=== PATIENT | female | born 1990 | race African-American/Black ===

== ENCOUNTER 2018-10-10 13:21 | Emergency (ER) | payer SELFPAY ==
[2018-10-10] MEDS ORDERED: LIDOCAINE 1% INJ-PF (10 MG/ML) 30 ML SDV NEB ONE (16:17)
--- NOTE | 2018-10-10 16:34 | ER Document Report ---
HPI - HPI Time Seen by Provider: 10/10/18 15:39 Pain Level: 3 Notes: Patient is an otherwise healthy 28-year-old female who presents with chief complaint of sore throat and chest congestion that started 2 days ago. Patient reports productive cough, denies any fevers. Denies any nasal congestion. Denies any nausea, vomiting or diarrhea. - CONSTITUTIONAL Constitutional: DENIES: Fever, Chills - EENT EENT: REPORTS: Sore Throat - redness/pain. DENIES: Ear Pain, Eye problems - NEURO Neurology: DENIES: Headache, Weakness, Vision blurred - CARDIOVASCULAR Cardiovascular: DENIES: Chest pain - RESPIRATORY Respiratory: DENIES: Trouble Breathing, Coughing - GASTROINTESTINAL Gastrointestinal: DENIES: Abdominal Pain, Black / Bloody Stools - URINARY Urinary: DENIES: Dysuria, Urgency, Frequency - REPRODUCTIVE Reproductive: DENIES: :, Postmenopausal, Abnormal bleeding / discharge Past Medical History - General Information source: Patient - Social History Smoking Status: Never Smoker Frequency of alcohol use: None Drug Abuse: None Family History: Reviewed & Not Pertinent Patient has suicidal ideation: No Patient has homicidal ideation: No - Medical History Medical History: Negative Renal/ Medical History: Denies: Hx Peritoneal Dialysis Surgical Hx: Negative - Immunizations Hx Diphtheria, Pertussis, Tetanus Vaccination: Yes Vertical Provider Document - CONSTITUTIONAL Notes: PHYSICAL EXAMINATION: GENERAL: Well-appearing, well-nourished and in no acute distress. HEAD: Atraumatic, normocephalic. EYES: Pupils equal round extraocular movements intact, conjunctiva are normal. ENT: Nares patent with clear rhinorrhea, mild tonsillar swelling with erythema, no exudates, no evidence of peritonsillar abscess. NECK: Normal range of motion, mild cervical lymphadenopathy. LUNGS: No respiratory distress, lung sounds clear to auscultation bilaterally. Musculoskeletal: Normal range of motion. NEUROLOGICAL: Normal speech, normal gait. PSYCH: Normal mood, normal affect. SKIN: Warm, Dry, normal turgor, no rashes or lesions noted. - INFECTION CONTROL TRAVEL OUTSIDE OF THE [place] IN LAST 30 DAYS: No Course - Re-evaluation Re-evalutation: Rapid strep is negative. Likely viral sore throat and upper respiratory illness. Patient discharged home in stable condition with home care instructions. - Vital Signs Vital signs: Temp Pulse Resp BP Pulse Ox 98.3 F 72 16 123/72 100 10/10/18 14:24 10/10/18 14:24 10/10/18 14:24 10/10/18 14:24 10/10/18 14:24 Discharge - Discharge Clinical Impression: Sore throat, Viral upper respiratory illness Condition: Stable Disposition: HOME, SELF-CARE Additional Instructions: Your symptoms are most likely due to a viral infection it should resolve over the next 7-14 days. You should take ypqc-pbi-xnfxhak guanfacine per bottle instructions to help thin the mucus. For nasal congestion: I would recommend that you get ttvo-bue-jrupltg oxymetazoline also known is afrin. Use only per bottle instructions and be sure to never use this for more than 3 days if you can develop severe rebound congestion. You may also use tylenol or ibuprofen as needed for aches and throat discomfort. Please be sure to drink plenty of fluids and get rest. Return to the emergency department he began having difficulty breathing, chest pain, persistent vomiting, or any other symptoms that are concerning to you. For the sore throat symptoms you may purchase an qdeq-oan-noquvcb sore throat medicine such as Chloraseptic spray or you can drink warm liquids such as hot tea with lemon. Prescriptions: Benzonatate [Tessalon Perles 100 mg Capsule] 100 mg PO Q8HP PRN #40 capsule PRN Reason: Prednisone [Deltasone 20 mg Tablet] 3 tab PO DAILY 5 Days #15 tablet Forms: Return to Work
[2018-10-10 17:30] VITALS: BP 125/90
== END 2018-10-10 17:44 | disposition home or self-care (01) ==
LOC: ER 13:21
DX: J02.9 Acute pharyngitis, unspecified (principal); J06.9 Acute upper respiratory infection, unspecified; B97.89 Other viral agents as the cause of diseases classified elsewhere; R09.89 Other specified symptoms and signs involving the circulatory and respiratory systems; R05 Cough
CPT/HCPCS: 94640; 99283; 87070; 87880; J3490

== ENCOUNTER 2019-03-16 11:04 | Emergency (ER) | payer SELFPAY ==
--- NOTE | 2019-03-16 11:18 | ER Document Report ---
ED Medical Screen (RME) - General Chief Complaint: Vag Bleeding, +preg <12wks Stated Complaint: VAGINAL BLEEDING Time Seen by Provider: 03/16/19 11:14 Mode of Arrival: Ambulatory Information source: Patient Notes: 28-year-old female presented to ED for complaint of positive home test on March 06 and vaginal bleeding that started today. She states she has felt very uncomfortable today. She is 5 para 2 with 2 miscarriages. She states she smokes maybe 1 cigarette a day does not drink and does smoke and she works at a [employer]. She is alert oriented respirations regular and unlabored speaking in full sentences walks with a even steady gait. Her blood type is O+. TRAVEL OUTSIDE OF THE [place] IN LAST 30 DAYS: No - Related Data Allergies/Adverse Reactions: No Known Allergies Allergy (Verified 10/10/18 13:26) Past Medical History Renal/ Medical History: Denies: Hx Peritoneal Dialysis - Immunizations Hx Diphtheria, Pertussis, Tetanus Vaccination: Yes Physical Exam - Vital signs Vitals: Temp Pulse Resp BP Pulse Ox 99.0 F 77 14 125/76 100 03/16/19 11:10 03/16/19 11:10 03/16/19 11:10 03/16/19 11:10 03/16/19 11:10 Course - Vital Signs Vital signs: Temp Pulse Resp BP Pulse Ox 99.0 F 77 14 125/76 100 03/16/19 11:10 03/16/19 11:10 03/16/19 11:10 03/16/19 11:10 03/16/19 11:10
[2019-03-16 11:38] LABS: ABSOLUTE BASOPHILS # (AUTO) 0.1 10^3/uL (0.0-0.2); ABSOLUTE LYMPHOCYTES (AUTO) 2.2 10^3/uL (0.5-4.7); ABSOLUTE MONOCYTES (AUTO) 0.5 10^3/uL (0.1-1.4); ABSOLUTE NEUT (AUTO) 2.9 10^3/uL (1.7-8.2); EOSINOPHILS % (AUTO) 0.6 % (0-6); HEMOGLOBIN 11.8 g/dL (12.0-15.5); LYMPHOCYTES % (AUTO) 39.3 % (13-45); MEAN CORPUSCULAR HEMOGLOBIN 26.1 pg (27.0-33.4); MEAN CORPUSCULAR HGB CONC 32.6 g/dL (32.0-36.0); MEAN CORPUSCULAR VOLUME 80 fl (80-97); MONOCYTES % (AUTO) 8.8 % (3-13); PLATELET COUNT 237 10^3/uL (150-450); SEGMENTED NEUTROPHILS % (AUTO) 50.3 % (42-78); TOTAL CELLS COUNTED % (AUTO) 100 %; WHITE BLOOD COUNT 5.7 10^3/uL (4.0-10.5)
[2019-03-16 11:42] LABS: APPEARANCE,URINE SLIGHTLY-CLOUDY; BILIRUBIN,URINE NEGATIVE (NEGATIVE); COLOR,URINE YELLOW; GLUCOSE, URINE NEGATIVE (NEGATIVE); KETONES,URINE TRACE mg/dL (NEGATIVE); LEUKOCYTE ESTERASE,URINE NEGATIVE (NEGATIVE); NITRITE,URINE NEGATIVE (NEGATIVE); PROTEIN,URINE 30 mg/dL (NEGATIVE); URINE SPECIFIC GRAVITY 1.028
[2019-03-16 11:56] LABS: ALBUMIN 4.6 g/dL (3.5-5.0); ALKALINE PHOSPHATASE 75 U/L (38-126); ANION GAP 9 (5-19); ASPARTATE AMINO TRANSFERASE 21 U/L (14-36); BILIRUBIN,DIRECT 0.2 mg/dL (0.0-0.4); BILIRUBIN,TOTAL 0.4 mg/dL (0.2-1.3); BLOOD UREA NITROGEN 7 mg/dL (7-20); CALCIUM 9.2 mg/dL (8.4-10.2); CARBON DIOXIDE 27 mmol/L (22-30); CHLORIDE 104 mmol/L (98-107); GLUCOSE 82 mg/dL (75-110); POTASSIUM 3.6 mmol/L (3.6-5.0); TOTAL PROTEIN 7.9 g/dL (6.3-8.2)
--- NOTE | 2019-03-16 12:01 | ER Document Report ---
ED GI/ - General Chief Complaint: Vag Bleeding, +preg <12wks Stated Complaint: VAGINAL BLEEDING Time Seen by Provider: 03/16/19 11:14 Mode of Arrival: Ambulatory Notes: Patient says that she is having vaginal bleeding that started early this morning. She had her last menstrual cycle February 05 and on March 06, 10 days ago, she did a home test that was positive. She has not had any clots passing. Has not had any significant cramping. Patient has been 5 times and has 2 living children and 2 miscarriages/abortions. Denies any fevers. No other significant past medical history. Has had 2 C-sections. On no prescription medications. TRAVEL OUTSIDE OF THE [place] IN LAST 30 DAYS: No - Related Data Allergies/Adverse Reactions: No Known Allergies Allergy (Verified 10/10/18 13:26) Past Medical History - General Information source: Patient - Social History Smoking Status: Current Every Day Smoker Drug Abuse: Marijuana Family History: Reviewed & Not Pertinent Patient has suicidal ideation: No Patient has homicidal ideation: No Past Surgical History: Reports: Hx Section - Immunizations Hx Diphtheria, Pertussis, Tetanus Vaccination: Yes Review of Systems - Review of Systems Notes: CONSTITUTIONAL : Denies fever. CARDIOVASCULAR: Denies chest pain. RESPIRATORY: Denies cough, chest congestion, or shortness of breath. GASTROINTESTINAL: Denies abdominal pain or nausea, vomiting, or diarrhea. GENITOURINARY: Denies difficulty or painful urinating, urinary frequency, blood in urine. Physical Exam - Vital signs Vitals: Temp Pulse Resp BP Pulse Ox 99.0 F 77 14 125/76 100 03/16/19 11:10 03/16/19 11:10 03/16/19 11:10 03/16/19 11:10 03/16/19 11:10 Interpretation: Normal Notes: PHYSICAL EXAMINATION: GENERAL: Well-appearing, no acute distress. Vital signs are all normal. HEAD: Atraumatic, normocephalic. NECK: Normal range of motion, supple. LUNGS: Breath sounds clear and equal bilaterally. HEART: Regular rate and rhythm without murmurs heard. ABDOMEN: Soft, nontender. No guarding or rebound or masses felt. Course - Re-evaluation Re-evalutation: beta HCG = 8239 03/17/19 13:17 - Vital Signs Vital signs: Temp Pulse Resp BP Pulse Ox 97.8 F 68 18 125/82 99 03/16/19 15:03 03/16/19 15:03 03/16/19 15:03 03/16/19 15:03 03/16/19 15:03 - Laboratory Result Diagrams: 03/16/19 11:29 03/16/19 11:29 Laboratory results interpreted by me: 03/16/19 03/16/19 03/16/19 11:29 11:29 11:29 Hgb 11.8 L MCH 26.1 L RDW 17.0 H Beta HCG, Quant 8238.70 H Urine Protein 30 H Urine Ketones TRACE H Urine Blood LARGE H Urine Urobilinogen 2.0 H Urine Ascorbic Acid 40 H - Diagnostic Test Radiology reviewed: Image reviewed, Reports reviewed - US shows gestational sac, yolk sac, but no pole. Also, large subchorionic hemorrhage. Discharge - Discharge Clinical Impression: , Vaginal bleeding, Threatened miscarriage Condition: Stable Disposition: HOME, SELF-CARE Additional Instructions: : You are . care is best started as early in as possible. If you're unsure about continuing this , you should discuss this with your physician or with bill peddler at [facility]. You should take only medications approved by your physician. Acetaminophen can safely be taken for minor pains. As a rule, medication for chronic conditions such as asthma or seizures can safely be continued. You should discuss with the physician every medicine you take. Any regular exercise program can be continued. Talk to your physician, however, before engaging in competitive or demanding sports. Alcohol, smoking, and "street drugs" are dangerous to your baby. Cocaine is especially dangerous. Don't use any illicit drugs! BLEEDING DURING EARLY : You have been evaluated for passing blood while . While we take this symptom very seriously, most women with your degree of bleeding will go on to have a perfectly normal baby. At this time, there is no indication that a miscarriage will occur. (A miscarriage occurs when the fetus is abnormal. There is no medicine or treatment to prevent it.) A more serious cause of bleeding is tubal (or ectopic) . An ultrasound usually can show whether the is in the uterus or in the tube. Sometimes in early , no fetus is seen. In this case, careful follow-up, including repeat blood tests and repeat ultrasound, is necessary. Do not douche or have sex for at least a week, or until OK'd by the doctor. Don't use tampons. Call the doctor or return for re-examination if there is an increase in bleeding or cramping, extreme weakness, fainting, new abdominal pain, fever, or passage of tissue. THREATENED MISCARRIAGE: You have been evaluated for a possible miscarriage. Most women with your symptoms will go on to have a perfectly normal baby. However, careful observation will be necessary. A miscarriage occurs when the fetus is abnormal. There is no medicine or treatment for it. You should rest in bed until the symptoms have resolved. Do not douche or have sex for at least a week, or until OK'd by the doctor. Call the doctor or return for re-examination if there is an increase in bleeding or cramping, or passage of tissue. REPEAT BLOOD TEST: At this time, it is uncertain if you have a viable . During the first three months of , the hormone produced from the placenta will steadily rise, usually doubling in value every 2 - 3 days. In order to determine if your is viable and likely be succesful, a repeat of this blood test for the hormone is recommended in 2 - 3 days. An order for this test to be done as an outpatient is being provided. After you have this repeat test done, call your doctor or call us for the results. If the value of the test is increasing as would be expected in a normal , then your is likely to be ok. However, if the value of the test is declining, it will suggest something has happened with your and it will not likely be a successful . FOLLOW-UP CARE: If you have been referred to a physician for follow-up care, call the physicians office for an appointment as you were instructed or within the next two days. If you experience worsening or a significant change in your symptoms (very heavy bleeding with large clots of blood, passage of tissue, more severe abdominal / pelvic pain or cramping, feeling faint or severe weakness, fever, et c.), notify the physician immediately or return to the Emergency Department at any time for re-evaluation. OBSTETRIC-GYNECOLOGIC (OB-ICEBOX WORKER) PHYSICI[facility] IN [place]: [facility] [address] [place] [address] [phone] If you would like, you can get a repeat blood test drawn Wednesday morning and call me for the results. Forms: Follow-Up Laboratory Testing, Return to Work
--- NOTE | 2019-03-16 14:33 | RADIOLOGY REPORT (SQ) ---
EXAM DESCRIPTION: U/S OB TRANSVAGINAL W/O DOP COMPLETED DATE/TIME: 03/16/2019 2:09 pm REASON FOR STUDY: Positive home vaginal bleeding COMPARISON: None. TECHNIQUE: Transvaginal static and realtime grayscale images acquired of the pelvis. Additional bridget cted spectral and color Doppler images recorded. All images stored on PACs. CLINICAL AGE: 5 weeks 4 days bHCG: Not available. LIMITATIONS: None. FINDINGS: UTERUS: No masses. No anomalies. GESTATIONAL SAC: Normal shape. YOLK SAC: Yes POLE: None present. There is a 4.1 x 3.6 x 2.8 cm fluid collection adjacent to the gestational sac. Large subchorionic bleed. RIGHT ADNEXA: Normal ovary with normal vascular flow. No adnexal free fluid. No adnexal masses. LEFT ADNEXA: Normal ovary with normal vascular flow. No adnexal free fluid. 2.7 cm cyst. FREE FLUID: None. OTHER: No other significant finding. IMPRESSION: POSSIBLE EARLY INTRAUTERINE . BHCG LEVEL NOT AVAILABLE FOR CORRELATION WITH US FINDINGS. Large subchorionic bleed. Trimester of : First trimester - 0 to 13 weeks. TECHNICAL DOCUMENTATION: JOB ID: [id number] [employer]- All Rights Reserved Reading location - IP/workstation name: [email or web address]
[2019-03-16 15:07] VITALS: BP 125/82
== END 2019-03-16 15:07 | disposition home or self-care (01) ==
LOC: ER 11:04
DX: O20.0 Threatened abortion (principal); F17.200 Nicotine dependence, unspecified, uncomplicated
CPT/HCPCS: 36415; 76817; 80053; 81001; 84702; 85025; 87086; 99284

== ENCOUNTER → 2019-03-19 | Outpatient (CLI) | payer SELFPAY | LOC: LAB 07:20 | PROVIDERS: ATTEND Emergency Medicine | DX: O20.0 Threatened abortion (principal); Z3A.00 Weeks of gestation of pregnancy not specified | CPT/HCPCS: 36415; 84702 ==

== ENCOUNTER → 2019-04-21 | Outpatient (CLI) | payer MEDICAID ==
--- NOTE | 2019-04-21 13:45 | RADIOLOGY REPORT (SQ) ---
EXAM DESCRIPTION: U/S GL7GATA TRNABD 1GES W/ODOP COMPLETED DATE/TIME: 04/21/2019 1:18 pm REASON FOR STUDY: Z34.81 ENCOUNTER FOR SUPRVSN OF NORMAL , FIRST TRIMESTER Z34.81 ENCOUNTE R FOR SUPRVSN OF NORMAL , FIRST TRIM COMPARISON: 03/16/2019 TECHNIQUE: Transabdominal static and realtime grayscale images acquired of the pelvis. Additional se lected spectral and color Doppler images recorded. All images stored on PACs. bHCG: Not applicable. CLINICAL DATES: CARTER: 11/12/2019. EGA: 10 weeks 5 days LIMITATIONS: None. FINDINGS: FETUS: Single Living intrauterine . ULTRASOUND EGA: 11 weeks 0 days ULTRASOUND CARTER: 11/10/2019 EFW: Not applicable less than 20 weeks. CRL: 4.1 cm FHR: 145 beats per minute. SURVEY: No visualized anomalies. AMNIOTIC FLUID: Adequate amount. PLACENTA: Not yet developed due to early gestation. SUBCHORIONIC BLEED: The subchorionic fluid collection has decreased in size. On the current examina tion measures 2.1 x 0.8 x 2.6 cm, compared to 4.1 x 3.6 x 2.8 cm on the prior examination. SIZE OF BLEED: See above. UTERUS: The uterus measures 12.4 x 9.3 x 9.4 cm. No masses. No anomalies. CERVICAL LENGTH: 3.0 cm. Closed. RIGHT ADNEXA: Not visualized sonographically. LEFT ADNEXA: Not visualized sonographically FREE FLUID: None. OTHER: No other significant finding. IMPRESSION: LIVING INTRAUTERINE . EGA: 11 weeks 0 days. Subchorionic bleed decreasing in size. Trimester of : First trimester - 0 to 13 weeks. TECHNICAL DOCUMENTATION: JOB ID: [id number] [employer]- All Rights Reserved rev-12/10 Reading location - IP/workstation name: [email or web address]
== END ==
LOC: RAD 12:36
PROVIDERS: ATTEND Nurse Practitioner Family
DX: Z34.81 Encounter for supervision of other normal pregnancy, first trimester (principal)
CPT/HCPCS: 76801

== ENCOUNTER 2019-11-07 07:45 | Inpatient (IN) | payer MEDICAID ==
[2019-11-09] MEDS ORDERED: RINGERS SOLUTION,LACTATED 1,000 ML IV ONE (04:45)
[2019-11-09] MEDS ORDERED: CEFAZOLIN 2 GM/D5W RTU 2 GM/50 ML RTUPB IV PRN (04:45)
[2019-11-09 05:12] LABS: APPEARANCE,URINE CLOUDY; BILIRUBIN,URINE NEGATIVE (NEGATIVE); COLOR,URINE YELLOW; GLUCOSE, URINE NEGATIVE (NEGATIVE); KETONES,URINE NEGATIVE (NEGATIVE); LEUKOCYTE ESTERASE,URINE NEGATIVE (NEGATIVE); NITRITE,URINE NEGATIVE (NEGATIVE); PROTEIN,URINE NEGATIVE (NEGATIVE); URINE SPECIFIC GRAVITY 1.019; UROBILINOGEN,URINE NEGATIVE mg/dL (<2.0)
[2019-11-09 05:20] LABS: URINE AMPHETAMINES SCREEN NEGATIVE; URINE BARBITURATES SCREEN NEGATIVE; URINE BENZODIAZEPINES SCREEN NEGATIVE; URINE COCAINE SCREEN NEGATIVE; URINE MARIJUANA (THC) SCREEN NEGATIVE; URINE METHADONE SCREEN NEGATIVE; URINE PHENCYCLIDINE SCREEN NEGATIVE
[2019-11-09 05:21] LABS: ABSOLUTE BASOPHILS # (AUTO) 0.1 10^3/uL (0.0-0.2); ABSOLUTE EOSINOPHILS # (AUTO) 0.1 10^3/uL (0.0-0.6); ABSOLUTE MONOCYTES (AUTO) 0.9 10^3/uL (0.1-1.4); ABSOLUTE NEUT (AUTO) 6.3 10^3/uL (1.7-8.2); BASOPHILS % (AUTO) 0.6 % (0-2); EOSINOPHILS % (AUTO) 0.7 % (0-6); HEMATOCRIT 35.4 % (36.0-47.0); HEMOGLOBIN 12.2 g/dL (12.0-15.5); LYMPHOCYTES % (AUTO) 21.1 % (13-45); MEAN CORPUSCULAR HEMOGLOBIN 30.6 pg (27.0-33.4); MEAN CORPUSCULAR HGB CONC 34.5 g/dL (32.0-36.0); MEAN CORPUSCULAR VOLUME 89 fl (80-97); PLATELET COUNT 209 10^3/uL (150-450); RED CELL DISTRIBUTION WIDTH 13.3 % (11.5-14.0); SEGMENTED NEUTROPHILS % (AUTO) 67.6 % (42-78); TOTAL CELLS COUNTED % (AUTO) 100 %; WHITE BLOOD COUNT 9.3 10^3/uL (4.0-10.5)
[2019-11-09] MEDS ORDERED: CEFAZOLIN 1 GM/D5W RTU 2 GM/100 ML RTUPB IV ONE (06:33)
[2019-11-09] MEDS ORDERED: OXYTOCIN 10 UNIT/ML VIAL ONE (06:38)
[2019-11-09] MEDS ORDERED: EPHEDRINE SULFATE INJ 50 MG/1 ML AMPULE ONE (06:39)
[2019-11-09] MEDS ORDERED: FENTANYL CITRATE INJ/PF 100 MCG/2 ML AMPUL ONE ×2 (06:39→10:33)
[2019-11-09] MEDS ORDERED: MIDAZOLAM 2 MG/2 ML INJ ONE (06:39)
[2019-11-09] MEDS ORDERED: OXYTOCIN/NORMAL SALINE 20 UNIT/1,000 ML RTUINJ ONE (06:39)
[2019-11-09] MEDS ORDERED: ONDANSETRON HCL INJ/PF 4 MG/2 ML SDV ONE (06:39)
[2019-11-09] MEDS: RINGERS SOLUTION,LACTATED 1,000 ML IV PRN ×2 (06:50→19:09)
[2019-11-09] MEDS ORDERED: OXYCODONE-ACETAMINOPHEN 5-325 MG TABLET PO PRN ×2 (08:04→09:52)
[2019-11-09] MEDS ORDERED: FENTANYL CITRATE INJ/PF 100 MCG/2 ML AMPUL IV PRN ×2 (08:04)
[2019-11-09] MEDS ORDERED: PROMETHAZINE HCL INJ 25 MG/1 ML VIAL IV PRN ×2 (08:04→09:52)
[2019-11-09] MEDS ORDERED: DIPHENHYDRAMINE HCL 50 MG/ML VIAL IV PRN (08:04)
[2019-11-09] MEDS ORDERED: MEPERIDINE HCL/PF INJ 25 MG/1 ML DISP.SYRIN IV PRN (08:04)
[2019-11-09] MEDS ORDERED: MORPHINE SULFATE 10 MG/ML INJ IV PRN (08:04)
[2019-11-09] MEDS ORDERED: MEASLES,MUMPS&RUBELLA VACC/PF 0.5 ML VIAL SUBCUT PRN (09:52)
[2019-11-09] MEDS ORDERED: RINGERS SOLUTION,LACTATED 1,000 ML IV PRN (09:52)
[2019-11-09] MEDS ORDERED: OXYTOCIN/NORMAL SALINE 20 UNIT/1,000 ML RTUINJ IV PRN (09:52)
[2019-11-09] MEDS ORDERED: ACETAMINOPHEN 325 MG TABLET PO PRN (09:52)
[2019-11-09] MEDS ORDERED: ACETAMINOPHEN 1,000 MG/100 ML RTUPB IV PRN (09:52)
[2019-11-09] MEDS ORDERED: DIPH/PERTUSS(ACELL)/TETANUS VAC/PF 0.5 ML SYR (>=10YO) IM PRN (09:52)
[2019-11-09] MEDS ORDERED: SIMETHICONE 80 MG TAB.CHEW PO PRN (09:52)
--- NOTE | 2019-11-09 09:52 | Brief Operative Note ---
BRIEF OPERATIVE REPORT DATE OF SURGERY: 11/09/19 TIME OF SURGERY: 08:00 PREOPERATIVE DIAGNOSIS: h/o section x2, 39+4ega, , pelviectasis, GBS positive, Multiparity, Undesired fertility, Hypertrophic scar POSTOPERATIVE DIAGNOSIS: ALINE - macrosomia SURGEON: SOLEDAD OH FINDINGS: VMI delivered at 0819, weight 4675g (10#5oz), APgars 8/9, normal bilateral tubes and ovaries, significant scar tissue, [place] Bilateral tubal ligation, IVF 1000ml, UOP 100ml, QBL 839ml COMPLICATIONS: None ESTIMATED BLOOD LOSS: 600ml TISSUE REMOVED OR ALTERED: placenta and cord not sent, bilateral portions of fallopian tubes sent TECHNICAL PROCEDURE: Repeat section with Scar revision, [facility]
[2019-11-09] MEDS ORDERED: ACETAMINOPHEN 1,000 MG/100 ML RTUPB IV ONE (10:34)
[2019-11-09] MEDS: FENTANYL CITRATE INJ/PF 100 MCG/2 ML AMPUL IV PRN ×2 (10:35→10:52)
--- NOTE | 2019-11-09 11:40 | PDOC DELIVERY SUMMARY ---
Delivery Summary - Maternal Hx : V Hx Para: II Hx # Term Pregnancies: 2 Hx # Pregnancies: 0 Hx Total # of Abortions (Sponateous & Elective): 2 Number of Living Children: 2 CARTER: 11/12/19 Gestational Age: 39.4 Risk Factors: Previous Ruptured Membranes: AROM Time of Rupture: 08:18 Fluids: Clear - Delivery Labor: Not In Labor Presentation: Vertex Heart Rate Monitoring: Done Pre-Operatively Uterine Contraction Monitoring: External Support Person Present: Yes Location: OR : Scheduled Placenta: Within Normal Limits Placenta Description: normal Number of Vessels (Cord): 3 Nuchal Cord: Yes Delivery of Placenta Date: 11/09/19 Delivery of Placenta Time: 08:20 Estimated Blood Loss: 600 Delivery Quantitative Blood Loss (QBL): 839 - Medications Type of Anesthesia:: Spinal - Infant Assess and Care Baby 1 Male Delivery of Infant Date: 11/09/19 Delivery of Time: 08:19 at 1 minute: 8 at 5 minutes: 9 Preprinted Number On Band: [id number] Infant Skin to Skin: No To Nursery At: 08:30 Mode of Transport: Bassinet Delivery Weight: 46.8 Delivery Length: 21.5 in - Delivery Personnel Nursery RN: ALVERTO HANNA Nursery RN: SLOAN RODRIGUEZ RN: RAFA RAMIREZ MD: SOLEDAD OH
--- NOTE | 2019-11-09 11:41 | Operative Report ---
Operative Report DATE OF SURGERY: 11/09/19 PREOPERATIVE DIAGNOSIS: h/o section x2, 39+4ega, , pelvie ctasis, GBS positive, Multiparity, Undesired fertility, Hypertrophic scar POSTOPERATIVE DIAGNOSIS: ALINE - macrosomia OPERATION: Repeat section with Scar revision, [place] BTL SURGEON: SOLEDAD OH ANESTHESIA: Spinal TISSUE REMOVED OR ALTERED: Placenta and cord COMPLICATIONS: None ESTIMATED BLOOD LOSS: 600 QUANTITATIVE BLOOD LOSS: 839 INTRAOPERATIVE FINDINGS: VMI delivered at 0819, weight 4675g (10#5oz), APgars 8/9, normal bilateral tubes and ovaries, significant scar tissue, [place] Bilateral tubal ligation, IVF 1000ml, UOP 100ml, QBL 839ml PROCEDURE: Anesthesia provider: [Jermain Lu HOSPITAL CLERK] Urine output: [100ml] IV fluids: [1000ml] Indications: [29yo at 39+4ega presents for scheduled repeat section. She has a history of 2 prior sections. She desires repeat section. She is 100% sure that she has completed childbearing and desires to have tubal sterilization. The risks, benefits, alternatives were reviewed and she desires to proceed with planned procedure.] Procedure: The patient was taken to the operating room where spinal anesthesia was obtained and found to be adequate. She was then prepped and draped in the normal sterile fashion and placed in the dorsal supine position with a leftward tilt. A Pfannenstiel skin incision was then made and carried through to the underlying layers of the fascia with the scalpel. The fascia was incised in the midline and the incision extended laterally with the Darling scissors. The superior aspect of the fascial incision was then grasped with Ирина clamps elevated and the underlying rectus muscles dissected off [sharply]. Attention was then turned to the inferior aspect of the fascial incision which in a similar fashion was grasped, tented up with Ирина clamps, and the rectus muscles dissected off [sharply]. The rectus muscles were then in the midline and the peritoneum at the amount identified and entered [bluntly]. The peritoneal incision was then extended superiorly and inferiorly with good visualization of the bladder. The bladder blade was inserted and the vesicouterine peritoneum identified grasped with Taiwanese pickups and entered sharply with the Metzenbaum scissors. This incision was then extended laterally with the Metzenbaum scissors and a bladder flap created digitally. The bladder blade was then reinserted and the lower uterine segment incised in a transverse fashion with the scalpel. The uterine incision was then extended bluntly. The bladder blade was removed and the infant's head was delivered from cephalic presentation atraumatically. The nose and mouth were suctioned and the cord doubly clamped and cut. And the was handed off to waiting pediatricians. The placenta was then delivered spontaneously and the uterus exteriorized and cleared of all clots and debris. The uterine incision was then repaired with 1- 0 Vicryl in a running locked fashion. A second layer of the same suture was used to obtain hemostasis via imbrication of the initial layer. The bladder flap was then repaired with 3-0 chromic in a running fashion. The right fallopian tube was followed out to the fimbriated end and the tubal sterilization was performed in [place] fashion. This procedure was repeated on the patients left. This completed the bilateral tubal ligation. The uterus was returned to the patient's abdomen and Interceed was placed overlying the uterine incision to prevent adhesions. Surgicel placed for hemostasis. The gutters were cleared of all clots and debris. All operative sites were noted to be hemostatic. The fascia was reapproximated with 0 Vicryl in a running fashion from each lateral edge to the midline. The skin was closed with 3-0 Monocryl in a running subcuticular fashion with overlying Dermabond for additional dressing as well as wound closure. The patient tolerated the procedure well. Sponge lap needle and instrument counts are correct times 2. 2 g of Ancef were given prior to skin incision. The patient was taken to the recovery area awake and in stable condition.
[2019-11-09] MEDS: HYDROMORPHONE HCL INJ/PF 2 MG/ML AMPULE IV PRN ×2 (11:54→17:13)
[2019-11-09] MEDS: KETOROLAC TROMETHAMINE INJ/PF 30 MG/1 ML SDV IV SCH ×2 (13:09→21:38)
[2019-11-09] MEDS: DOCUSATE SODIUM 100 MG CAPSULE PO SCH ×2 (13:09→17:13)
[2019-11-09] MEDS: PRENATAL VITAMIN W DHA CAPSULE PO SCH (13:09)
[2019-11-09] MEDS: OXYCODONE-ACETAMINOPHEN 5-325 MG TABLET PO PRN ×2 (14:48→19:42)
[2019-11-10] MEDS: HYDROMORPHONE HCL INJ/PF 2 MG/ML AMPULE IV PRN (01:20)
[2019-11-10] MEDS: IBUPROFEN 800 MG TABLET PO SCH ×4 (04:06→17:22)
[2019-11-10] MEDS: KETOROLAC TROMETHAMINE INJ/PF 30 MG/1 ML SDV IV SCH (05:00)
[2019-11-10] MEDS: OXYCODONE-ACETAMINOPHEN 5-325 MG TABLET PO PRN ×4 (07:20→19:57)
--- NOTE | 2019-11-10 10:01 | PDOC PROGRESS REPORT ---
Subjective-OB Progress Note for:: 11/10/19 Subjective: Pt doing well, no concerns. She reports light bleeding, reg diet and voiding without difficulty. Pain is well controlled. Physical Exam (OB) Vital Signs: Temp Pulse Resp BP Pulse Ox 98.8 F 102 H 16 119/81 99 11/10/19 07:51 11/10/19 07:51 11/10/19 07:51 11/10/19 07:51 11/10/19 07:51 Intake & Output 11/09/19 11/10/19 11/11/19 06:59 06:59 06:59 Intake Total 2230 Output Total 700 Balance 1530 Weight 109.2 kg - PIH/Pre-Eclampsia DTR's: 1 + Clonus: Negative Headache: Absent Epigastric Pain: No Visual Changes: No - Dressing Removed: No Incision: Open Closure Type: Surgical Glue - Bilateral Tubal Ligation Dressing Removed: No Site: Dressing - Lochia Lochia Amount: Scant < 10 ml Lochia Color: Rubra/Red - Abdomen Description: Soft Hernia Present: No Fundal Description: Firm, Midline Fundal Height: u/u - u/2 Objective-Diagnostic Laboratory: 11/09/19 05:08 Assessment and Plan(PN) - Assessment and Plan (1) History of delivery Is this a current diagnosis for this admission?: Yes (2) Macrosomia Is this a current diagnosis for this admission?: Yes (3) S/P repeat low transverse Is this a current diagnosis for this admission?: Yes (4) Sterilization Is this a current diagnosis for this admission?: Yes - Time Spent with Patient Time with patient: Less than 15 minutes Medications reviewed and adjusted accordingly: Yes - Disposition Anticipated Discharge: Home Within: within 24 hours
[2019-11-10] MEDS: DOCUSATE SODIUM 100 MG CAPSULE PO SCH ×2 (10:34→17:23)
[2019-11-10] MEDS: PRENATAL VITAMIN W DHA CAPSULE PO SCH (10:35)
[2019-11-11] MEDS: IBUPROFEN 800 MG TABLET PO SCH ×2 (00:45→06:03)
[2019-11-11] MEDS: HYDROMORPHONE HCL INJ/PF 2 MG/ML AMPULE IV PRN (00:46)
[2019-11-11] MEDS: OXYCODONE-ACETAMINOPHEN 5-325 MG TABLET PO PRN ×2 (06:03→09:46)
[2019-11-11 08:32] LABS: HEMATOCRIT 32.7 % (36.0-47.0); HEMOGLOBIN 11.3 g/dL (12.0-15.5); MEAN CORPUSCULAR HEMOGLOBIN 30.9 pg (27.0-33.4); MEAN CORPUSCULAR HGB CONC 34.6 g/dL (32.0-36.0); MEAN CORPUSCULAR VOLUME 89 fl (80-97); PLATELET COUNT 210 10^3/uL (150-450); RED BLOOD COUNT 3.65 10^6/uL (3.72-5.28); RED CELL DISTRIBUTION WIDTH 13.5 % (11.5-14.0); WHITE BLOOD COUNT 11.6 10^3/uL (4.0-10.5)
[2019-11-11] MEDS: PRENATAL VITAMIN W DHA CAPSULE PO SCH (09:42)
[2019-11-11] MEDS: DOCUSATE SODIUM 100 MG CAPSULE PO SCH (09:42)
--- NOTE | 2019-11-11 10:36 | PDOC DISCHARGE SUMMARY ---
Impression - Admit/DC Date/PCP Admission Date/Primary Care Provider: 11/09/19 04:26 ABRIL DUQUE Discharge Date: 11/11/19 - Discharge Diagnosis (1) History of delivery Is this a current diagnosis for this admission?: Yes (2) Macrosomia Is this a current diagnosis for this admission?: Yes (3) S/P repeat low transverse Is this a current diagnosis for this admission?: Yes (4) Sterilization Is this a current diagnosis for this admission?: Yes - Additional Information Resuscitation Status: Full Code Discharge Diet: Regular Discharge Activity: Activity As Tolerated, No Lifting Over 10 Pounds, No Lifting/Push/Pulling, Pelvic Rest, No tub bath Referrals: MAXX DARBY ARNP [Primary Care Provider] - Prescriptions: Oxycodone HCl/Acetaminophen [Percocet 5-325 mg Tablet] 1 tab PO Q4HP PRN #30 tablet PRN Reason: Ibuprofen [Motrin 800 mg Tablet] 800 mg PO Q8HP PRN #60 tablet PRN Reason: Home Medications: No.137/Iron/Folic Acd [ Vitamin Tablet] 1 each PO DAILY 10/13/13 Ibuprofen [Motrin 800 mg Tablet] 800 mg PO Q8HP PRN #60 tablet 11/11/19 Oxycodone HCl/Acetaminophen [Percocet 5-325 mg Tablet] 1 tab PO Q4HP PRN #30 tablet 11/11/19 HPI Reason(s) for Admission: Ceasarean Section-Repeat Procedures: None Intrapartum Procedure(s): : Low Cervical, Transverse Results Laboratory Results: WBC 11.6 10^3/uL (4.0-10.5) H 11/11/19 08:23 RBC 3.65 10^6/uL (3.72-5.28) L 11/11/19 08:23 Hgb 11.3 g/dL (12.0-15.5) L 11/11/19 08:23 Hct 32.7 % (36.0-47.0) L 11/11/19 08:23 MCV 89 fl (80-97) 11/11/19 08:23 MCH 30.9 pg (27.0-33.4) 11/11/19 08:23 MCHC 34.6 g/dL (32.0-36.0) 11/11/19 08:23 RDW 13.5 % (11.5-14.0) 11/11/19 08:23 Plt Count 210 10^3/uL (150-450) 11/11/19 08:23 Lymph % (Auto) 21.1 % (13-45) 11/09/19 05:08 [place] % (Auto) 10.0 % (3-13) 11/09/19 05:08 Eos % (Auto) 0.7 % (0-6) 11/09/19 05:08 Baso % (Auto) 0.6 % (0-2) 11/09/19 05:08 Absolute Neuts (auto) 6.3 10^3/uL (1.7-8.2) 11/09/19 05:08 Absolute Lymphs (auto) 2.0 10^3/uL (0.5-4.7) 11/09/19 05:08 Absolute Monos (auto) 0.9 10^3/uL (0.1-1.4) 11/09/19 05:08 Absolute Eos (auto) 0.1 10^3/uL (0.0-0.6) 11/09/19 05:08 Absolute Basos (auto) 0.1 10^3/uL (0.0-0.2) 11/09/19 05:08 Seg Neutrophils % 67.6 % (42-78) 11/09/19 05:08 Urine Color YELLOW 11/09/19 04:45 Urine Appearance CLOUDY 11/09/19 04:45 Urine pH 6.0 (5.0-9.0) 11/09/19 04:45 Ur Specific Groom 1.019 11/09/19 04:45 Urine Protein NEGATIVE mg/dL (NEGATIVE) 11/09/19 04:45 Urine Glucose (UA) NEGATIVE mg/dL (NEGATIVE) 11/09/19 04:45 Urine Ketones NEGATIVE mg/dL (NEGATIVE) 11/09/19 04:45 Urine Blood SMALL (NEGATIVE) H 11/09/19 04:45 Urine Nitrite NEGATIVE (NEGATIVE) 11/09/19 04:45 Urine Bilirubin NEGATIVE (NEGATIVE) 11/09/19 04:45 Urine Urobilinogen NEGATIVE mg/dL (<2.0) 11/09/19 04:45 Ur Leukocyte Esterase NEGATIVE (NEGATIVE) 11/09/19 04:45 Urine WBC (Auto) 4 /HPF 11/09/19 04:45 Urine RBC (Auto) 6 /HPF 11/09/19 04:45 Urine Bacteria (Auto) TRACE /HPF 11/09/19 04:45 Squamous Epi Cells Auto 34 /HPF 11/09/19 04:45 Urine Mucus (Auto) OCC /LPF 11/09/19 04:45 Urine Ascorbic Acid NEGATIVE (NEGATIVE) 11/09/19 04:45 Urine Opiates Screen NEGATIVE 11/09/19 04:45 Urine Methadone Screen NEGATIVE 11/09/19 04:45 Ur Barbiturates Screen NEGATIVE 11/09/19 04:45 Ur Phencyclidine Scrn NEGATIVE 11/09/19 04:45 Ur Amphetamines Screen NEGATIVE 11/09/19 04:45 U Benzodiazepines Scrn NEGATIVE 11/09/19 04:45 Urine Cocaine Screen NEGATIVE 11/09/19 04:45 U Marijuana (THC) Screen NEGATIVE 11/09/19 04:45 Blood Type O POSITIVE 11/09/19 05:08 Antibody Screen NEGATIVE 11/09/19 05:08 Plan Goals: f/u at [facility] for incision check Time Spent: Less than 30 Minutes
[2019-11-11 11:27] VITALS: BP 129/83
== END 2019-11-11 12:15 | disposition home or self-care (01) | DRG 785 ==
LOC: 2S 11-09 04:26
PROVIDERS: ADMIT Student in an Organized Health Care Education/Training Program; ATTEND Student in an Organized Health Care Education/Training Program
PROC: 0UB70ZZ Excision of Bilateral Fallopian Tubes, Open Approach (ICD-10-PCS; 2019-11-09)
PROC: 0HB7XZZ Excision of Abdomen Skin, External Approach (ICD-10-PCS; 2019-11-09)
PROC: 3E0234Z Introduction of Serum, Toxoid and Vaccine into Muscle, Percutaneous Approach (ICD-10-PCS; 2019-11-09)
PROC: 10D00Z1 Extraction of Products of Conception, Low, Open Approach (ICD-10-PCS; principal; 2019-11-09 07:45)
DX: O34.211 Maternal care for low transverse scar from previous cesarean delivery (principal); Z30.2 Encounter for sterilization; O36.63X0 Maternal care for excessive fetal growth, third trimester, not applicable or unspecified; O99.334 Smoking (tobacco) complicating childbirth; F17.210 Nicotine dependence, cigarettes, uncomplicated; N85.8 Other specified noninflammatory disorders of uterus; Z37.0 Single live birth; Z23 Encounter for immunization; Z3A.39 39 weeks gestation of pregnancy
CPT/HCPCS: 1961; 36415; 59025; 80307; 81001; 85025; 85027; 86850; 86900; 86901; 88302; 94799; C1765; J0131; J1170; J1885; J2250; J2405; J2590; J3010; J3490; J7120

== ENCOUNTER 2019-12-22 10:24 | Emergency (ER) | payer MEDICAID ==
--- NOTE | 2019-12-22 10:40 | ER Document Report ---
ED Extremity Problem, Upper - General Chief Complaint: Numbness of Arm Stated Complaint: LEFT ARM FEELS TINGLY/NUMB Time Seen by Provider: 12/22/19 10:30 Primary Care Provider: PAOLO HAMMOND MD [NO LOCAL MD] - Follow up as needed Mode of Arrival: Ambulatory Information source: Patient Notes: 29-year-old female presents to ED for complaint of pain and numbness and tingling to the left arm and shoulder for 2 weeks. She states last week she was told it could be a pinched nerve. She states she just had a baby about 4 weeks ago a . She states she was told to take her ibuprofen and she has been taking that it with no relief. She is alert oriented respirations regular and unlabored speaking in full sentences. She states she thought she might need a muscle relaxer something to help her with the pain. We will get x-rays of the neck and shoulder and then reevaluate after the x-rays. TRAVEL OUTSIDE OF THE [place] IN LAST 30 DAYS: No - HPI Patient complains to provider of: Pain - And tingling, Left, Shoulder Onset: Other Recent injury: Possibly - 2 weeks Quality of pain: Achy - Numbness and tingling Severity of pain: Moderate Pain Level: 2 Associated symptoms: Numbness, Tingling Exacerbated by: Movement, Exertion Relieved by: Nothing Similar symptoms previously: Yes Recently seen / treated by doctor: Yes - Related Data Allergies/Adverse Reactions: No Known Allergies Allergy (Verified 12/22/19 10:36) Past Medical History - General Information source: Patient - Social History Smoking Status: Never Smoker Frequency of alcohol use: None Drug Abuse: None Lives with: Family Family History: Reviewed & Not Pertinent Patient has suicidal ideation: No Patient has homicidal ideation: No - Past Medical History Cardiac Medical History: Reports: None Pulmonary Medical History: Reports: Hx Asthma - as child EENT Medical History: Reports: None Neurological Medical History: Reports: None Endocrine Medical History: Reports: None Renal/ Medical History: Reports: None Malignancy Medical History: Reports: None GI Medical History: Reports: None Musculoskeletal Medical History: Reports None Skin Medical History: Reports None Psychiatric Medical History: Reports: None Traumatic Medical History: Reports: None Infectious Medical History: Reports: None Past Surgical History: Reports: Hx Section - Immunizations Hx Diphtheria, Pertussis, Tetanus Vaccination: Yes Review of Systems - Review of Systems Constitutional: No symptoms reported EENT: No symptoms reported Cardiovascular: No symptoms reported Respiratory: No symptoms reported Gastrointestinal: No symptoms reported Genitourinary: No symptoms reported Female Genitourinary: No symptoms reported Musculoskeletal: Other - Numbness and tingling to left shoulder and arm Skin: No symptoms reported Hematologic/Lymphatic: No symptoms reported Neurological/Psychological: No symptoms reported -: Yes All other systems reviewed and negative Physical Exam - Vital signs Vitals: Temp Pulse Resp BP Pulse Ox 98.5 F 72 21 H 141/90 H 100 12/22/19 10:30 12/22/19 10:30 12/22/19 10:30 12/22/19 10:30 12/22/19 10:30 Interpretation: Normal - General General appearance: Appears well, Alert - HEENT Head: Normocephalic, Atraumatic Eyes: Normal Pupils: PERRL - Respiratory Respiratory status: No respiratory distress Chest status: Nontender Breath sounds: Normal Chest palpation: Normal - Cardiovascular Rhythm: Regular Heart sounds: Normal auscultation Murmur: No - Abdominal Inspection: Normal Distension: No distension Bowel sounds: Normal Tenderness: Nontender Organomegaly: No organomegaly - Back Back: Normal, Nontender - Extremities General upper extremity: Normal inspection, Normal color, Normal ROM - Pain with range of motion but has full range of motion, Normal temperature General lower extremity: Normal inspection, Nontender, Normal color, Normal ROM, Normal temperature, Normal weight bearing. No: Kate's sign Shoulder: Tender. No: Deformity, Dislocation, Ecchymosis, Instability, Laceration, Limited ROM - Has full range of motion but with some pain - Neurological Neuro grossly intact: Yes Cognition: Normal Orientation: AAOx4 Marta Coma Scale Eye Opening: Spontaneous [place] Coma Scale Verbal: Oriented Marta Coma Scale Motor: Obeys Commands [place] Coma Scale Total: 15 Speech: Normal Motor strength normal: LUE, RUE, LLE, RLE Sensory: Normal - Psychological Associated symptoms: Normal affect, Normal mood - Skin Skin Temperature: Warm Skin Moisture: Dry Skin Color: Normal Course - Re-evaluation Re-evalutation: 12/22/19 18:37 Today discussed with patient and written report of x-ray given to patient. Patient was instructed to please follow-up primary doctor and get a referral to a back specialist or peer specialist. Patient verbalized understanding and agreement with treatment plan and patient was discharged home. - Vital Signs Vital signs: Temp Pulse Resp BP Pulse Ox 98.2 F 68 16 136/89 H 100 12/22/19 11:56 12/22/19 11:56 12/22/19 11:56 12/22/19 11:56 12/22/19 11:56 - Diagnostic Test Radiology reviewed: Image reviewed, Reports reviewed Discharge - Discharge Clinical Impression: Foraminal stenosis C6-C7 , Osteophytes C6-C7 Condition: Stable Disposition: HOME, SELF-CARE Additional Instructions: You are having numbness and tingling to your left arm due to narrowing of the foraminal at C6-C7 due to right osteophytes greater on the left than on the right. I have given you a written report of the CT of the neck. Your shoulder x-ray does not show any acute abnormalities. I have asked the nurse to get you a CD of this CT to take with you to follow-up. You need to follow-up with a neurologist to reevaluate this and determine any future treatment. As you state you have Medicaid you will need to follow-up with your primary care doctor and get a referral. This is not something that is caused by an injury this is a chronic problem. You will need to follow-up with your primary care doctor to get a referral to neurology. Exercise Program for the Shoulder Since the shoulder moves in so many directions, the joint attachment is weak. Muscles provide most of the stability to the shoulder. You must exercise your shoulder to prevent painful instability or stiffening. PASSIVE - These may be begun within a few days of the injury. While standing, lean forward, allowing the arm to hang down towards the floor. Move the arm in small circles while slowly twisting your chest towards and away from the hanging arm. Do this for one minute. ACTIVE - These may be performed when the doctor gives permission. Begin with the arms at the sides. Raise the arms forward (shoulder's width apart) until they reach shoulder level. Then slowly swing both arms back until they are aiming straight out away from each other. Then bring them forward again, and finally, lower them to your sides. Repeat 20 to 30 times. As you improve, put weights in your hands for the exercise. Start with one pound, and work up to 10 pounds. Never use more than is comfortable. Athletes may work up to 30 pounds. Ibuprofen Ibuprofen is an excellent, safe drug for pain control. In addition, it has potent antiinflammatory effects which are beneficial, especially in the treatment of injuries, arthritis, or tendonitis. It's best to take ibuprofen with food. Persons with ulcer disease or allergy to aspirin should notify their physician of this before taking ibuprofen. Take the medication exactly as prescribed. Don't take additional doses unless instructed to do so by your doctor. If you develop wheezing, shortness of breath, hives, faintness, stomach pain, vomiting, or dark black stools, return for re-evaluation at once. FOLLOW-UP CARE: If you have been referred to a physician for follow-up care, call the physicians office for an appointment as you were instructed or within the next two days. If you experience worsening or a significant change in your symptoms, notify the physician immediately or return to the Emergency Department at any time for re-evaluation. Forms: Return to Work Referrals: PAOLO HAMMOND MD [NO LOCAL MD] - Follow up as needed
--- NOTE | 2019-12-22 11:13 | RADIOLOGY REPORT (SQ) ---
EXAM DESCRIPTION: SHOULDER LEFT 2 OR MORE VIEWS IMAGES COMPLETED DATE/TIME: 12/22/2019 10:59 am REASON FOR STUDY: Pain and numbness to the shoulder and arm COMPARISON: None. NUMBER OF VIEWS: Three views. TECHNIQUE: Internal rotation, external rotation, and Y view images acquired of the left shoulder. LIMITATIONS: None. FINDINGS: MINERALIZATION: Normal. BONES: No acute fracture. JOINTS: No dislocation. VISUALIZED LUNGS AND RIBS: No pneumothorax or rib fracture. SOFT TISSUES: No radiopaque foreign body. OTHER: No other finding. IMPRESSION: No acute osseous abnormality of the left shoulder. TECHNICAL DOCUMENTATION: JOB ID: [id number] 2010 [employer]- All Rights Reserved Reading location - IP/workstation name: [email or web address]
--- NOTE | 2019-12-22 11:17 | RADIOLOGY REPORT (SQ) ---
EXAM DESCRIPTION: CERV SP 4 OR 5 VIEWS IMAGES COMPLETED DATE/TIME: 12/22/2019 10:59 am REASON FOR STUDY: Pain and numbness to the shoulder and arm COMPARISON: None. NUMBER OF VIEWS: Five views. TECHNIQUE: AP, oblique, odontoid, and swimmer's views of the cervical spine were obtained. LIMITATIONS: None. FINDINGS: MINERALIZATION: Normal. ALIGNMENT: Anatomic. No atlantoaxial dissociation on the odontoid view. VERTEBRAE: The cervical vertebral body heights are preserved. There is no fracture. DISCS: The C6-C7 intervertebral disc space is narrowed and there is associated endplate osteophyte fo rmation. FORAMINA: [id number] left greater than the right osteophytic foraminal stenosis at C6-C7 due to uncovertebral hypertrophy. LATERAL AND POSTERIOR ELEMENTS: Intact. HARDWARE: None in the spine. SOFT TISSUES: No radiographic. OTHER: No other finding. IMPRESSION: [id number] left greater than right osteophytic foraminal stenosis at C6-C7 due to uncovertebral hypertrophy. TECHNICAL DOCUMENTATION: JOB ID: [id number] 2010 [employer]- All Rights Reserved Reading location - IP/workstation name: [email or web address]
[2019-12-22 11:56] VITALS: BP 136/89
== END 2019-12-22 12:15 | disposition home or self-care (01) ==
LOC: ER 10:24
DX: M48.02 Spinal stenosis, cervical region (principal); M25.78 Osteophyte, vertebrae; R20.0 Anesthesia of skin; R20.2 Paresthesia of skin; Z98.890 Other specified postprocedural states
CPT/HCPCS: 72050; 99284

== ENCOUNTER 2020-06-20 03:44 | Emergency (ER) | payer MEDICAID ==
[2020-06-20 04:00] VITALS: BP 137/90
[2020-06-20 04:28] LABS: ABSOLUTE EOSINOPHILS # (AUTO) 0.1 10^3/uL (0.0-0.6); ABSOLUTE MONOCYTES (AUTO) 0.4 10^3/uL (0.1-1.4); ABSOLUTE NEUT (AUTO) 2.2 10^3/uL (1.7-8.2); EOSINOPHILS % (AUTO) 1.1 % (0-6); HEMATOCRIT 37.5 % (36.0-47.0); HEMOGLOBIN 12.4 g/dL (12.0-15.5); LYMPHOCYTES % (AUTO) 42.2 % (13-45); MEAN CORPUSCULAR HEMOGLOBIN 27.4 pg (27.0-33.4); MEAN CORPUSCULAR VOLUME 83 fl (80-97); MONOCYTES % (AUTO) 8.8 % (3-13); PLATELET COUNT 216 10^3/uL (150-450); SEGMENTED NEUTROPHILS % (AUTO) 46.9 % (42-78); TOTAL CELLS COUNTED % (AUTO) 100 %; WHITE BLOOD COUNT 4.7 10^3/uL (4.0-10.5)
[2020-06-20 04:37] LABS: APPEARANCE,URINE SLIGHTLY-CLOUDY; BILIRUBIN,URINE NEGATIVE (NEGATIVE); COLOR,URINE YELLOW; GLUCOSE, URINE NEGATIVE (NEGATIVE); KETONES,URINE NEGATIVE (NEGATIVE); LEUKOCYTE ESTERASE,URINE TRACE (NEGATIVE); NITRITE,URINE NEGATIVE (NEGATIVE); PROTEIN,URINE 30 mg/dL (NEGATIVE); URINE SPECIFIC GRAVITY 1.029
[2020-06-20 04:45] LABS: ALBUMIN 4.4 g/dL (3.5-5.0); ALKALINE PHOSPHATASE 79 U/L (38-126); ANION GAP 8 (5-19); ASPARTATE AMINO TRANSFERASE 24 U/L (14-36); BILIRUBIN,DIRECT 0.1 mg/dL (0.0-0.4); BILIRUBIN,TOTAL 0.3 mg/dL (0.2-1.3); BLOOD UREA NITROGEN 9 mg/dL (7-20); CALCIUM 9.1 mg/dL (8.4-10.2); CARBON DIOXIDE 25 mmol/L (22-30); CHLORIDE 108 mmol/L (98-107); GLUCOSE 102 mg/dL (75-110); TOTAL PROTEIN 7.3 g/dL (6.3-8.2)
== END 2020-06-20 06:00 | disposition left against medical advice (07) ==
LOC: ER 03:44
DX: Z53.21 Procedure and treatment not carried out due to patient leaving prior to being seen by health care provider (principal)
CPT/HCPCS: 36415; 80053; 81001; 81025; 83690; 85025